=== PATIENT | male | born 1955 | race Caucasian/White ===

== ENCOUNTER → 2017-06-23 | Outpatient (CLI) | payer OTHER ==
[~2017-06-23] MED LIST: CIPRO 500MG TA500 MG PO; NORCO 325 MG-51 TAB PO; PERCOCET 5/321 UDTAB PO; PHENERGAN 25 TA25 MG PO; PHENERGAN25 MG RC; PROTONIX 40MG T40 MG PO; PYRIDIUM 100MG100 MG PO
== END ==
LOC: COL.RAD 13:57
DX: M48.02 Spinal stenosis, cervical region (principal); M25.78 Osteophyte, vertebrae

== ENCOUNTER → 2018-03-10 | Outpatient (CLI) | payer OTHER | LOC: COL.RAD 08:24 | DX: Q76.6 Other congenital malformations of ribs (principal) | CPT/HCPCS: A9503 ==

== ENCOUNTER 2018-10-06 15:00 | Outpatient (RCR) | payer MEDICARE, OTHER | END 2018-11-01 16:02 | disposition home or self-care (01) | LOC: WSOT 15:00 | DX: S50.01XA Contusion of right elbow, initial encounter (principal) ==

== ENCOUNTER 2021-04-11 07:39 | Emergency (ER) | payer MEDICARE, OTHER ==
[~2021-04-11] VITALS: Ht 172.7 cm; Wt 131.8 kg
[2021-04-11 07:48] VITALS: TEMP 97.6
[2021-04-11 08:08] LABS: BASO % 0.3 % (0.0-2.0); EOS # 0.1 (0.0-0.7); GRAN # 5.6 (1.4-6.5); GRAN % 72.9 % (42.2-75.2); HEMATOCRIT 44.1 % (42.0-52.0); HEMOGLOBIN 14.4 g/dl (13.5-18.0); LYMPH # 1.4 (1.2-3.4); LYMPH % 18.4 % (20.0-51.0); MEAN CELL VOLUME 86 fl (80.0-100.0); MEAN CORPUSCULAR HEMOGLOBIN 28 pg (27.0-31.0); MEAN CORPUSCULAR HGB CONC 33 g/dl (33.0-37.0); MEAN PLATELET VOLUME 8.5 fl (7.4-10.4); MONO # 0.5 (0.1-0.6); MONO % 6.6 % (1.7-9.3); PLATELET COUNT 115 K/mm3 (130-400); RED BLOOD COUNT 5.15 M/mm3 (4.20-5.60); REDCELL DISTRIBUTION WIDTH-CV 16.9 % (11.5-14.5)
[2021-04-11 08:18] LABS: INR 1.1 (0.8-3.0); PROTHROMBIN TIME 12.7 SECONDS (9.7-12.8)
[2021-04-11 08:21] LABS: PARTIAL THROMBOPLASTIN TIME 30.2 SECONDS (26.0-37.0)
[2021-04-11 08:29] LABS: ALBUMIN 3.5 gm/dL (3.4-4.8); BILIRUBIN,TOTAL 0.8 mg/dL (0.2-1.2); CALCIUM 8.6 mg/dL (8.4-10.2); CREATININE, serum 0.91 mg/dL (0.72-1.25); POTASSIUM 3.7 mmol/L (3.5-4.5); TOTAL PROTEIN 6.9 gm/dL (6.2-8.1)
[2021-04-11 08:37] LABS: TROPONIN-I 0.132 ng/mL (0.00-0.033)
[2021-04-11 13:13] VITALS: BP 120/83; PULSE 63
== END 2021-04-11 13:13 | disposition short-term general hospital (02) ==
LOC: COL.ER 07:39
PROVIDERS: Family Medicine
DX: I21.4 Non-ST elevation (NSTEMI) myocardial infarction (principal); I26.99 Other pulmonary embolism without acute cor pulmonale; K21.9 Gastro-esophageal reflux disease without esophagitis; Z79.899 Other long term (current) drug therapy
CPT/HCPCS: J1644; J7030; Q9967

== ENCOUNTER 2021-04-27 13:30 | Outpatient (RCR) | payer MEDICARE, OTHER | END 2021-05-13 13:41 | disposition home or self-care (01) | LOC: WSPT 13:30 | DX: M25.511 Pain in right shoulder (principal) ==

== ENCOUNTER 2021-07-07 14:15 | Outpatient (RCR) | payer MEDICARE, OTHER | END 2021-07-10 | disposition home or self-care (01) | LOC: WSPT | DX: M25.512 Pain in left shoulder (principal) ==

== ENCOUNTER → 2021-10-08 | Outpatient (RCR) | payer MEDICARE, OTHER | END | disposition home or self-care (01) | LOC: WSPT | DX: M19.019 Primary osteoarthritis, unspecified shoulder (principal); M75.42 Impingement syndrome of left shoulder; M75.112 Incomplete rotator cuff tear or rupture of left shoulder, not specified as traumatic; M75.22 Bicipital tendinitis, left shoulder ==

== ENCOUNTER 2021-11-02 13:30 | Outpatient (RCR) | payer MEDICARE, OTHER | END 2021-11-07 | disposition home or self-care (01) | LOC: WSPT | DX: M75.42 Impingement syndrome of left shoulder (principal); M75.112 Incomplete rotator cuff tear or rupture of left shoulder, not specified as traumatic; M75.22 Bicipital tendinitis, left shoulder; M19.019 Primary osteoarthritis, unspecified shoulder | CPT/HCPCS: G0283-GP ==

== ENCOUNTER 2021-12-04 11:15 | Outpatient (RCR) | payer MEDICARE, OTHER | END 2021-12-08 | disposition home or self-care (01) | LOC: WSPT | DX: M75.42 Impingement syndrome of left shoulder (principal); M75.112 Incomplete rotator cuff tear or rupture of left shoulder, not specified as traumatic; M19.019 Primary osteoarthritis, unspecified shoulder; M75.22 Bicipital tendinitis, left shoulder ==

== ENCOUNTER 2022-01-05 13:30 | Outpatient (RCR) | payer MEDICARE, OTHER | END 2022-01-07 | disposition home or self-care (01) | LOC: WSPT | DX: M19.012 Primary osteoarthritis, left shoulder (principal); M75.42 Impingement syndrome of left shoulder; M75.112 Incomplete rotator cuff tear or rupture of left shoulder, not specified as traumatic; M75.22 Bicipital tendinitis, left shoulder ==

== ENCOUNTER 2022-02-05 13:30 | Outpatient (RCR) | payer MEDICARE, OTHER | END 2022-02-07 | disposition home or self-care (01) | LOC: WSPT | DX: M75.112 Incomplete rotator cuff tear or rupture of left shoulder, not specified as traumatic (principal); M75.22 Bicipital tendinitis, left shoulder; M75.42 Impingement syndrome of left shoulder; M19.019 Primary osteoarthritis, unspecified shoulder ==

== ENCOUNTER 2022-03-04 13:30 | Outpatient (RCR) | payer MEDICARE, OTHER | END 2022-03-10 | disposition home or self-care (01) | LOC: WSPT | DX: M75.112 Incomplete rotator cuff tear or rupture of left shoulder, not specified as traumatic (principal); M19.019 Primary osteoarthritis, unspecified shoulder; M75.42 Impingement syndrome of left shoulder; M75.22 Bicipital tendinitis, left shoulder; M19.012 Primary osteoarthritis, left shoulder ==

== ENCOUNTER 2022-03-18 13:30 | Outpatient (RCR) | payer MEDICARE, OTHER | END 2022-03-18 15:00 | disposition home or self-care (01) | LOC: WSPT 13:30 | DX: M75.42 Impingement syndrome of left shoulder (principal); M19.012 Primary osteoarthritis, left shoulder; M75.122 Complete rotator cuff tear or rupture of left shoulder, not specified as traumatic; M75.22 Bicipital tendinitis, left shoulder ==

== ENCOUNTER → 2023-04-18 | Outpatient (CLI) | payer MEDICARE, OTHER | LOC: MHCPAIN 14:09 | DX: M54.16 Radiculopathy, lumbar region (principal); M51.36 Other intervertebral disc degeneration, lumbar region; M47.816 Spondylosis without myelopathy or radiculopathy, lumbar region | CPT/HCPCS: G0463 ==

== ENCOUNTER → 2023-05-11 | Outpatient (CLI) | payer MEDICARE, OTHER | LOC: COL.RAD 14:14 | DX: M54.50 Low back pain, unspecified (principal) ==

== ENCOUNTER → 2023-06-10 | Outpatient (CLI) | payer MEDICARE | LOC: COL.RAD 12:46 | DX: M51.36 Other intervertebral disc degeneration, lumbar region (principal) ==

== ENCOUNTER → 2023-06-16 | Outpatient (CLI) | payer MEDICARE | LOC: MHCPAIN 12:55 | DX: M54.50 Low back pain, unspecified (principal); M51.36 Other intervertebral disc degeneration, lumbar region; M79.18 Myalgia, other site | CPT/HCPCS: G0463 ==

== ENCOUNTER → 2023-07-28 | Outpatient (CLI) | payer MEDICARE | LOC: MHCPAIN 13:47 | DX: M54.50 Low back pain, unspecified (principal); M51.36 Other intervertebral disc degeneration, lumbar region; M79.18 Myalgia, other site | CPT/HCPCS: G0463 ==

== ENCOUNTER → 2023-10-17 | Outpatient (CLI) | payer MEDICARE, OTHER | LOC: MHCPAIN 12:59 | DX: M54.50 Low back pain, unspecified (principal); M51.36 Other intervertebral disc degeneration, lumbar region | CPT/HCPCS: G0463 ==